=== PATIENT | male | born 1970 | race Caucasian/White ===

== ENCOUNTER 2020-10-07 15:46 | Emergency (ER) | payer OTHER ==
[~2020-10-07] VITALS: Ht 172.7 cm; Wt 99.8 kg
[2020-10-07] MEDS ORDERED: HYDROCODON-ACE1 EA10 PO (16:53)
== END 2020-10-07 17:06 | disposition home or self-care (01) ==
LOC: ED 15:46
DX: S42.202A Unspecified fracture of upper end of left humerus, initial encounter for closed fracture (principal); V89.2XXA Person injured in unspecified motor-vehicle accident, traffic, initial encounter
CPT/HCPCS: 73030; 96372; 99284-25; J1170